=== PATIENT | female | born 2000 | race Caucasian/White ===

== ENCOUNTER 2021-11-14 12:53 | Outpatient (CLI) | payer BC | END 2021-11-14 12:54 | disposition home or self-care (01) | LOC: CSHCT 12:53 | PROVIDERS: ATTEND Otolaryngology | DX: J32.4 Chronic pansinusitis (principal); J30.2 Other seasonal allergic rhinitis; J34.3 Hypertrophy of nasal turbinates; J34.2 Deviated nasal septum; N20.0 Calculus of kidney | CPT/HCPCS: 74018 ==

== ENCOUNTER 2021-12-26 16:00 | Outpatient (CLI) | payer BC | END 2021-12-26 16:01 | disposition home or self-care (01) | LOC: CSHULT 16:00 | PROVIDERS: ATTEND Urology | DX: N20.0 Calculus of kidney (principal) | CPT/HCPCS: 76770 ==